=== PATIENT | female | born 1970 | race Caucasian/White ===

== ENCOUNTER → 2016-10-18 | Outpatient (CLI) | payer OTHER ==
[~2016-10-18] MED LIST: GADOBUTROL 10 ML VIAL IVP ONE
== END ==
LOC: FIMAGING 12:13
PROVIDERS: ATTEND Internal Medicine Hematology & Oncology
DX: Z12.39 Encounter for other screening for malignant neoplasm of breast (principal); Z15.01 Genetic susceptibility to malignant neoplasm of breast
CPT/HCPCS: 0159T; A9585; C8908

== ENCOUNTER → 2017-01-30 | Outpatient (CLI) | payer OTHER | LOC: FIMAGING 13:53 | PROVIDERS: ATTEND Family Medicine | DX: Z12.31 Encounter for screening mammogram for malignant neoplasm of breast (principal) | CPT/HCPCS: G0202 ==

== ENCOUNTER → 2017-03-26 | Outpatient (CLI) | payer OTHER | LOC: FIMAGING 10:36 | PROVIDERS: ATTEND Internal Medicine Hematology & Oncology | DX: R92.8 Other abnormal and inconclusive findings on diagnostic imaging of breast (principal) | CPT/HCPCS: 0159T; A9585; C8908 ==

== ENCOUNTER → 2017-04-18 | Outpatient (CLI) | payer OTHER ==
[~2017-04-18] MED LIST changes: +ACETAMINOPHEN 325 MG TAB PO PRN; +ALTEPLASE 2 MG VIAL IVP PRN; +BUPIVACAINE 0.5% 30 ML SDV ONE; +FLUMAZENIL 0.5 MG/5 ML MDV IVP ONE; +FLUMAZENIL 0.5 MG/5 ML MDV IVP PRN; +GLUCAGON HCL 1 MG VIAL IVP PRN; +HEPARIN 10,000 UNIT/10 ML MDV (1,000 UNIT/ML) IVP PRN; +LIDOCAINE 1% 5 ML SDV ONE; +MEPERIDINE 25 MG/ML SYR IVP PRN; +MIDAZOLAM 2 MG/2 ML VIAL IVP PRN; +MIDAZOLAM 2 MG/2 ML VIAL ONE; +NA BICARBONATE 50 MEQ/50 ML VIAL ONE; +NALOXONE HCL 0.4 MG/ML INJ IVP PRN; +NALOXONE HCL 0.4 MG/ML INJ ONE; +NS 1,000 ML IV SCH; +ONDANSETRON 4 MG/2 ML VIAL IVP PRN; +PROTAMINE SULFATE 50 MG/5 ML VIAL IVP PRN; +fentaNYL 100 MCG/2 ML INJ IVP PRN; +fentaNYL 100 MCG/2 ML INJ ONE
[2017-04-18 08:57] VITALS: TEMP 99
--- NOTE | 2017-04-18 09:41 | PDPROPOC ---
Sedation Plan of Care Sedation Plan of Care: vital signs stable Mallampati Reference Image: Patient passed 3-3-2 rule?: Yes
--- NOTE | 2017-04-18 09:43 | PDGENHP ---
History & Physical Chief Complaint: abnl breast MRI History of Present Illness: high risk screening breast MRI Relevant Physical Exam: rrr, lungs clear Cardiorespiratory Assessment: rrr, lungs clear
[2017-04-18 10:39] VITALS: O2SAT 100
[2017-04-18 11:10] VITALS: BP 106/87; PULSE 85; RESP 18
--- NOTE | 2017-04-18 11:59 | PDRADPN ---
Radiology Procedure Note Date of Procedure: 04/18/17 Radiologist: Daren Márquez Anesthesia: IV Sedation Pre-op Diagnosis: abnl breast MRI Post-op Diagnosis: same Inf/Abcess present in the surg proc area at time of surgery?: No Depth: Superfical (Skin SQ) EBL: Minimal
== END ==
LOC: FIMAGING 08:03
PROVIDERS: ATTEND Internal Medicine Hematology & Oncology
PROC: 0HBT3ZX Excision of Right Breast, Percutaneous Approach, Diagnostic (ICD-10-PCS; principal; 2017-04-18)
DX: N60.11 Diffuse cystic mastopathy of right breast (principal)
CPT/HCPCS: A9585; J2250; J2310; J3010

== ENCOUNTER → 2018-03-24 | Outpatient (CLI) | payer OTHER ==
[~2018-03-24] MED LIST changes: -ACETAMINOPHEN 325 MG TAB PO PRN; -ALTEPLASE 2 MG VIAL IVP PRN; -BUPIVACAINE 0.5% 30 ML SDV ONE; -FLUMAZENIL 0.5 MG/5 ML MDV IVP ONE; -FLUMAZENIL 0.5 MG/5 ML MDV IVP PRN; -GLUCAGON HCL 1 MG VIAL IVP PRN; -HEPARIN 10,000 UNIT/10 ML MDV (1,000 UNIT/ML) IVP PRN; -LIDOCAINE 1% 5 ML SDV ONE; -MEPERIDINE 25 MG/ML SYR IVP PRN; -MIDAZOLAM 2 MG/2 ML VIAL IVP PRN; -MIDAZOLAM 2 MG/2 ML VIAL ONE; -NA BICARBONATE 50 MEQ/50 ML VIAL ONE; -NALOXONE HCL 0.4 MG/ML INJ IVP PRN; -NALOXONE HCL 0.4 MG/ML INJ ONE; -NS 1,000 ML IV SCH; -ONDANSETRON 4 MG/2 ML VIAL IVP PRN; -PROTAMINE SULFATE 50 MG/5 ML VIAL IVP PRN; -fentaNYL 100 MCG/2 ML INJ IVP PRN; -fentaNYL 100 MCG/2 ML INJ ONE
== END ==
LOC: FIMAGING 11:30
PROVIDERS: ATTEND Internal Medicine Hematology & Oncology
DX: N62 Hypertrophy of breast (principal); Z80.3 Family history of malignant neoplasm of breast
CPT/HCPCS: A9585; C8908